=== PATIENT | male | born 1980 | race Caucasian/White ===

== ENCOUNTER 2019-08-02 16:33 | Emergency (ER) | payer OTHER ==
--- NOTE | 2019-08-02 18:59 | EDM.PDOC ---
ED HPI GENERAL MEDICAL PROBLEM - General Chief Complaint: Medication Administration Stated Complaint: LEFT PINKY FINGER INJURY Time Seen by Provider: 08/02/19 18:58 Source of Information: Reports: Patient History Limitations: Reports: No Limitations - History of Present Illness INITIAL COMMENTS - FREE TEXT/NARRATIVE: patient is a 38-year-old male presents ED complaining of left fifth finger pain. Patient had a injury to one of the tendons to the left finger requiring surgery by [facility] this past Friday. States since surgery has been taking norco 7.5/325mg as directed for pain. States he took his last pill this a.m. and has noted increasing pain to the affected finger. States he was instructed to not take tylenol and ibuprofen while taking the narcotic. Patient has not taken anything today for the pain. pain is localized throbbing in nature. Denies redness, swelling,drainage of any sort. Dressing change was today with no concerning findings. Appointment with hand specialist as scheduled for August 11, 2019. Left Finger-Little Pain Score (Numeric/FACES): 7 Social & Family History - Family History Family Medical History: Noncontributory - Tobacco Use Smoking Status *Q: Unknown Ever Smoked ED ROS GENERAL - Review of Systems Review Of Systems: ROS reveals no pertinent complaints other than HPI. ED EXAM, GENERAL - Physical Exam Exam: See Below Exam Limited By: No Limitations General Appearance: Alert, WD/WN, No Apparent Distress Ears: Hearing Grossly Normal Nose: Normal Inspection Throat/Mouth: Normal Voice, No Airway Compromise Head: Atraumatic, Normocephalic Neck: Normal Inspection, Supple Respiratory/Chest: No Respiratory Distress, Lungs Clear, Normal Breath Sounds, No Accessory Muscle Use, Chest Non-Tender Cardiovascular: Normal Peripheral Pulses, Regular Rate, Rhythm, No Murmur Peripheral Pulses: 2+: Radial (R) Extremities: Other (on exam patient has a splint in place to the left fifth finger with pain protruding from the tip of the left finger. Pain present with no signs of abnormal drainage, redness to the hand/finger or increased swelling. No sensory changes noted.) Neurological: Alert, Oriented, CN II-XII Intact, Normal Cognition, No Motor/ Sensory Deficits Psychiatric: Normal Affect, Normal Mood Skin Exam: Warm, Dry Course - Vital Signs Last Recorded V/S: Last Vital Signs Temp 97.5 F 08/02/19 17:00 Pulse 76 08/02/19 17:00 Resp 16 08/02/19 17:00 BP 145/88 H 08/02/19 17:00 Pulse Ox 100 08/02/19 17:00 - Re-Assessments/Exams Free Text/Narrative Re-Assessment/Exam: Status post left finger surgery this past Friday by Dr. Alanis with pinning of the finger. he was taken [place] 75/325 for pain and ran out of this medication this morning. He has not taken anything for the pain today. He is here to receive more pain medications in hopes of getting better pain control today. He did drive himself thus not able to receive any pain medications while in the ED. I will send him home with a short course of Percocet 5/325 #6. He went to see occupational med doctor tomorrow for further pain management if needed. Return precautions discussed with the patient. He had no further questions or concerns. Departure - Departure Time of Disposition: 19:25 Disposition: Home, Self-Care 01 Condition: Good Clinical Impression: Finger pain, left - Discharge Information Referrals: Michelet Alanis MD [Primary Care Provider] - Forms: ED Department Discharge Additional Instructions: Take the Percocet as prescribed. Follow-up with Dr. Arzate with occupational med for further pain management. Keep appointment with Dr. Alanis as scheduled for reevaluation. If you develop any new or worsening symptoms please call Dr. Alanis's office and or return to the ED for further evaluation. Do not drive while taking the narcotics. Do not operate heavy equipment while on narcotics.
== END 2019-08-02 19:43 | disposition home or self-care (01) ==
LOC: SUPCPDRO 16:33 → JD.ED 16:33
DX: M79.645 Pain in left finger(s) (principal)
CPT/HCPCS: 99281